=== PATIENT | male | born 1950 | race Caucasian/White ===

== ENCOUNTER → 2017-10-30 | Outpatient (CLI) | payer MEDICARE, OTHER ==
[~2017-10-30] MED LIST: AMLO10 PO; ASPI325 PO; ASPI325EC PO; ASPI81CH PO; ATOR40TA PO; COQ1050 MG PO; GLUC500 PO; IBUP800 PO; OXYACE5T PO; Percocet 5-3251 EACH PO
== END | disposition home or self-care (01) ==
LOC: LAB SHORT 11:17 → PLD 11:17
DX: Q82.8 Other specified congenital malformations of skin (principal)
CPT/HCPCS: 88305; 88342

== ENCOUNTER → 2017-11-20 | Outpatient (CLI) | payer MEDICARE, OTHER | END | disposition home or self-care (01) | LOC: PLD 13:41 → LAB SHORT 13:41 | DX: D22.5 Melanocytic nevi of trunk (principal) | CPT/HCPCS: 88305 ==

== ENCOUNTER 2018-02-14 13:16 | Inpatient (IN) | payer MEDICARE, OTHER ==
[~2018-02-14] VITALS: Ht 167.6 cm; Wt 78.0 kg
[~2018-02-14 13:16] MED LIST changes: -ASPI325EC PO
[2018-02-20 04:27] LABS: BASOPHILS ABSOLUTE AUTO 0.06 K/mm3 (0.00-0.23); BASOPHILS PERCENT AUTO 1 % (0-2); EOSINOPHILS ABSOLUTE AUTO 0.21 K/mm3 (0.00-0.68); EOSINOPHILS PERCENT AUTO 2 % (0-6); Hematocrit 35.4 % (37.0-53.0); Hemoglobin 12.3 g/dL (13.5-17.5); IMMATURE GRAN ABSOLUTE AUTO 0.05 K/mm3 (0.00-0.10); IMMATURE GRAN PERCENT AUTO 0 % (0-1); LYMPHOCYTES ABSOLUTE AUTO 1.58 K/mm3 (0.84-5.20); LYMPHOCYTES PERCENT AUTO 13 % (21-46); MONOCYTES ABSOLUTE AUTO 1.16 K/mm3 (0.16-1.47); MONOCYTES PERCENT AUTO 10 % (4-13); Mean Corpuscular HGB Conc 34.7 g/dL (31.5-36.5); Mean Corpuscular Volume 86 fL (80-100); Mean Platelet Volume 9.3 fL (9.1-12.4); NEUTROPHILS ABSOLUTE AUTO 9.12 K/mm3 (1.96-9.15); NEUTROPHILS PERCENT AUTO 75 % (41-73); Platelet Count 310 K/mm3 (150-400); RDW Coefficient Variation 11.8 % (11.7-14.2); RDW Standard Deviation 37.1 fL (35.1-46.3); White Blood Cell Count 12.18 K/mm3 (4.00-11.30)
[2018-02-20 04:43] LABS: Anion Gap 9 mmol/L (6-16); Blood Urea Nitrogen 15 mg/dL (8-24); Bun/Creatinine Ratio 15.6 (12.0-20.0); CO2, Blood 27 mmol/L (21-32); Calcium, Blood 8.5 mg/dL (8.5-10.1); Chloride, Blood 94 mmol/L (98-108); Creatinine, Blood 0.96 mg/dL (0.60-1.20); Glomerular Filtration Rate >60 (60-); Glucose, Blood 93 mg/dL (70-99); Potassium, Blood 3.6 mmol/L (3.5-5.5); Sodium, Blood 130 mmol/L (136-145)
[2018-02-20] MEDS ORDERED: Percocet 5-3251 EACH PO (09:54)
[2018-02-20] MEDS ORDERED: ASPI325EC PO (09:54)
== END 2018-02-20 10:38 | disposition home or self-care (01) | DRG 470 ==
LOC: SURS 02-19 05:57 → PRE IP 02-19 07:30 → SURS 02-19 11:14
PROVIDERS: Orthopaedic Surgery
PROC: 0SRB039 Replacement of Left Hip Joint with Ceramic Synthetic Substitute, Cemented, Open Approach (ICD-10-PCS; principal; 2018-02-19 07:30)
DX: M16.12 Unilateral primary osteoarthritis, left hip (principal); M10.9 Gout, unspecified; I10 Essential (primary) hypertension; E78.5 Hyperlipidemia, unspecified
CPT/HCPCS: 36415; 72170; 80048; 85025; 88300; 97110; 97116; 97161; 97530; C1776; G8978; G8979; J0171; J0735; J1885; J2250; J2765; J2795; J3010; J7120

== ENCOUNTER → 2018-03-07 | Outpatient (CLI) | payer MEDICARE, OTHER, SELFPAY ==
[~2018-03-07] MED LIST changes: +ASPI325EC PO
== END ==
LOC: PLD 07:06 → LAB SHORT 07:06
DX: Z85.820 Personal history of malignant melanoma of skin (principal); L57.0 Actinic keratosis
CPT/HCPCS: 88305

== ENCOUNTER → 2018-05-06 | Outpatient (CLI) | payer MEDICARE, OTHER, SELFPAY | END | disposition home or self-care (01) | LOC: PLD 12:28 → LAB SHORT 12:28 | DX: D04.5 Carcinoma in situ of skin of trunk (principal); L57.0 Actinic keratosis | CPT/HCPCS: 88305 ==

== ENCOUNTER → 2019-08-05 | Outpatient (CLI) | payer MEDICARE, OTHER | END | disposition home or self-care (01) | LOC: LAB SHORT 14:46 → PLD 14:46 | DX: C44.42 Squamous cell carcinoma of skin of scalp and neck (principal) | CPT/HCPCS: 88305 ==

== ENCOUNTER → 2020-09-20 | Outpatient (CLI) | payer MEDICARE, OTHER | END | disposition home or self-care (01) | LOC: LAB 13:08 → LAB SHORT 13:08 | DX: C44.519 Basal cell carcinoma of skin of other part of trunk (principal) | CPT/HCPCS: 88305 ==

== ENCOUNTER → 2021-03-21 | Outpatient (CLI) | payer MEDICARE, OTHER | LOC: LAB SHORT 14:46 → LAB 14:46 | DX: D48.5 Neoplasm of uncertain behavior of skin (principal); Z88.0 Allergy status to penicillin | CPT/HCPCS: 88305 ==

== ENCOUNTER → 2021-10-03 | Outpatient (CLI) | payer MEDICARE, OTHER | END | disposition home or self-care (01) | LOC: LAB SHORT 08:28 | DX: D03.39 Melanoma in situ of other parts of face (principal); D22.4 Melanocytic nevi of scalp and neck | CPT/HCPCS: 88305 ==

== ENCOUNTER → 2021-11-10 | Outpatient (CLI) | payer MEDICARE, OTHER | END | disposition home or self-care (01) | LOC: PLD 14:46 → LAB SHORT 14:46 | DX: L73.8 Other specified follicular disorders (principal); L57.0 Actinic keratosis | CPT/HCPCS: 88305 ==

== ENCOUNTER → 2023-02-28 | Outpatient (CLI) | payer MEDICARE, OTHER | LOC: PLD 16:04 → LAB SHORT 16:04 | DX: D48.5 Neoplasm of uncertain behavior of skin (principal) | CPT/HCPCS: 88305 ==

== ENCOUNTER → 2023-06-06 | Outpatient (CLI) | payer MEDICARE, OTHER | LOC: LAB SHORT 15:01 → PLD 15:01 | DX: L82.1 Other seborrheic keratosis (principal) | CPT/HCPCS: 88305 ==

== ENCOUNTER 2023-08-16 14:15 | Emergency (ER) | payer MEDICARE, OTHER ==
[~2023-08-16] VITALS: Ht 172.7 cm; Wt 80.3 kg
[2023-08-16 15:11] LABS: BASOPHILS ABSOLUTE AUTO 0.08 K/mm3 (0.00-0.23); BASOPHILS PERCENT AUTO 1 % (0-2); EOSINOPHILS ABSOLUTE AUTO 0.13 K/mm3 (0.00-0.68); EOSINOPHILS PERCENT AUTO 1 % (0-6); Hematocrit 36.1 % (37.0-53.0); Hemoglobin 12.9 g/dL (13.5-17.5); IMMATURE GRAN ABSOLUTE AUTO 0.04 K/mm3 (0.00-0.10); IMMATURE GRAN PERCENT AUTO 0 % (0-1); LYMPHOCYTES ABSOLUTE AUTO 1.11 K/mm3 (0.84-5.20); LYMPHOCYTES PERCENT AUTO 12 % (21-46); MONOCYTES ABSOLUTE AUTO 0.78 K/mm3 (0.16-1.47); MONOCYTES PERCENT AUTO 8 % (4-13); Mean Corpuscular HGB 30.2 pg (26.0-34.0); Mean Corpuscular HGB Conc 35.7 g/dL (31.5-36.5); Mean Corpuscular Volume 85 fL (80-100); Mean Platelet Volume 9.3 fL (9.1-12.4); NEUTROPHILS ABSOLUTE AUTO 7.13 K/mm3 (1.96-9.15); NEUTROPHILS PERCENT AUTO 77 % (41-73); Platelet Count 284 K/mm3 (150-400); RDW Coefficient Variation 12.9 % (11.7-14.2); RDW Standard Deviation 39.4 fL (35.1-46.3); Red Blood Cell Count 4.27 M/mm3 (4.30-5.90); White Blood Cell Count 9.27 K/mm3 (4.00-11.30)
[2023-08-16 15:34] LABS: Albumin/Globulin Ratio 0.9 (0.8-1.8); Bilirubin, Total 0.3 mg/dL (0.1-1.0); Bun/Creatinine Ratio 18.3 (12.0-20.0); Calcium, Blood 9.4 mg/dL (8.5-10.1); Creatinine, Blood 1.64 mg/dL (0.60-1.20); Globulin, Blood 4.4 g/dL (2.2-4.0); Magnesium, Blood 2.1 mg/dL (1.6-2.4); Potassium, Blood 3.9 mmol/L (3.5-5.5); Total Protein, Blood 8.4 g/dL (6.4-8.2)
[2023-08-16 20:30] VITALS: BP 178/99
== END 2023-08-16 20:33 | disposition home or self-care (01) ==
LOC: ER 14:15
PROVIDERS: Physician Assistant
DX: R55 Syncope and collapse (principal); I12.9 Hypertensive chronic kidney disease with stage 1 through stage 4 chronic kidney disease, or unspecified chronic kidney disease; N18.9 Chronic kidney disease, unspecified; E78.5 Hyperlipidemia, unspecified; M19.90 Unspecified osteoarthritis, unspecified site; Z88.0 Allergy status to penicillin; Z79.899 Other long term (current) drug therapy
CPT/HCPCS: 80053; 83735; 85025; 93005; 93010; 99284-25

== ENCOUNTER → 2023-10-18 | Outpatient (CLI) | payer MEDICARE, OTHER ==
[2023-10-18 17:02] LABS: Creatinine, Urine Random 60.5 mg/dL (27.00-270.00); Protein, Urine Random 64.2 mg/dL (0.0-11.9); Protein/Creat Ratio, Ur Random 1.1
== END ==
LOC: LAB SHORT 12:30 → LAB 12:30
PROVIDERS: Hospitalist
DX: N18.32 Chronic kidney disease, stage 3b (principal)
CPT/HCPCS: 82570; 84156

== ENCOUNTER → 2024-08-04 | Outpatient (CLI) | payer OTHER ==
[~2024-08-04] MED LIST changes: +LIDO700A20 TOP; +MECL12.5 PO; +OLMESARTAN MEDO20 MG PO; +TRAM50 PO
[2024-08-04 13:15] LABS: BASOPHILS ABSOLUTE AUTO 0.04 K/mm3 (0.00-0.23); BASOPHILS PERCENT AUTO 1 % (0-2); EOSINOPHILS ABSOLUTE AUTO 0.03 K/mm3 (0.00-0.68); EOSINOPHILS PERCENT AUTO 0 % (0-6); Hemoglobin 10.8 g/dL (13.5-17.5); IMMATURE GRAN ABSOLUTE AUTO 0.04 K/mm3 (0.00-0.10); IMMATURE GRAN PERCENT AUTO 1 % (0-1); LYMPHOCYTES ABSOLUTE AUTO 0.95 K/mm3 (0.84-5.20); LYMPHOCYTES PERCENT AUTO 12 % (21-46); MONOCYTES ABSOLUTE AUTO 0.53 K/mm3 (0.16-1.47); MONOCYTES PERCENT AUTO 7 % (4-13); Mean Corpuscular HGB 29.2 pg (26.0-34.0); Mean Corpuscular HGB Conc 33.8 g/dL (31.5-36.5); Mean Corpuscular Volume 87 fL (80-100); NEUTROPHILS PERCENT AUTO 79 % (41-73); Platelet Count 269 K/mm3 (150-400); RDW Coefficient Variation 13.2 % (11.7-14.2); RDW Standard Deviation 41.4 fL (35.1-46.3); White Blood Cell Count 7.69 K/mm3 (4.00-11.30)
[2024-08-04 13:25] LABS: Bilirubin, Total 0.5 mg/dL (0.1-1.0); Bun/Creatinine Ratio 18.2 (12.0-20.0); Calcium, Blood 9.3 mg/dL (8.5-10.1); Creatinine, Blood 2.03 mg/dL (0.60-1.20); Globulin, Blood 4.2 g/dL (2.2-4.0); Potassium, Blood 5.3 mmol/L (3.5-5.5); Total Protein, Blood 8.2 g/dL (6.4-8.2)
== END | disposition home or self-care (01) ==
LOC: LAB 13:10 → LAB SHORT 13:10
PROVIDERS: Physician Assistant
DX: R42 Dizziness and giddiness (principal)
CPT/HCPCS: 80053; 85025

== ENCOUNTER 2025-04-07 20:39 | Inpatient (IN) | payer OTHER ==
[~2025-04-07] VITALS: Ht 170.2 cm; Wt 79.4 kg
[2025-04-07 21:09] LABS: BASOPHILS ABSOLUTE AUTO 0.05 K/mm3 (0.00-0.23); BASOPHILS PERCENT AUTO 0 % (0-2); EOSINOPHILS ABSOLUTE AUTO 0.11 K/mm3 (0.00-0.68); EOSINOPHILS PERCENT AUTO 1 % (0-6); Hematocrit 29.6 % (37.0-53.0); Hemoglobin 10.2 g/dL (13.5-17.5); IMMATURE GRAN ABSOLUTE AUTO 0.22 K/mm3 (0.00-0.10); IMMATURE GRAN PERCENT AUTO 2 % (0-1); LYMPHOCYTES ABSOLUTE AUTO 2.08 K/mm3 (0.84-5.20); LYMPHOCYTES PERCENT AUTO 17 % (21-46); MONOCYTES ABSOLUTE AUTO 1.10 K/mm3 (0.16-1.47); MONOCYTES PERCENT AUTO 9 % (4-13); Mean Corpuscular HGB Conc 34.5 g/dL (31.5-36.5); Mean Corpuscular Volume 84 fL (80-100); NEUTROPHILS ABSOLUTE AUTO 8.50 K/mm3 (1.96-9.15); NEUTROPHILS PERCENT AUTO 71 % (41-73); NRBC ABSOLUTE 0.00 K/mm3 (0.00-0.02); NRBC Auto 0.0 /100 WBC (0.0-0.2); Platelet Count 347 K/mm3 (150-400); RDW Coefficient Variation 12.4 % (11.7-14.2); RDW Standard Deviation 37.9 fL (35.1-46.3)
[2025-04-07 21:55] LABS: Anion Gap 14.0 mmol/L (3-11); Blood Urea Nitrogen 56.0 mg/dL (8-24); CO2, Blood 18.0 mmol/L (21-32); Calcium, Blood 8.3 mg/dL (8.5-10.1); Chloride, Blood 92.0 mmol/L (98-108); Creatinine, Blood 2.25 mg/dL (0.60-1.20); Glucose, Blood 109.0 mg/dL (70-99); Potassium, Blood 4.3 mmol/L (3.5-5.5); Sodium, Blood 120.0 mmol/L (136-145)
[2025-04-07 22:00] LABS: Osmolality, Serum 270.0 mos/KG (275-300)
[2025-04-07] MEDS ORDERED: Polyethylene Glycol 3350 17 gm PO PRN (23:10)
[2025-04-08 01:30] LABS: Anion Gap 12.0 mmol/L (3-11); Blood Urea Nitrogen 49.0 mg/dL (8-24); CO2, Blood 20.0 mmol/L (21-32); Calcium, Blood 8.5 mg/dL (8.5-10.1); Chloride, Blood 93.0 mmol/L (98-108); Creatinine, Blood 2.2 mg/dL (0.60-1.20); Glucose, Blood 96.0 mg/dL (70-99); Potassium, Blood 4.3 mmol/L (3.5-5.5); Sodium, Blood 121.0 mmol/L (136-145)
[2025-04-08 01:41] VITALS: BP 154/83
[2025-04-08 04:22] VITALS: BP 114/67
[2025-04-08 04:52] LABS: Hematocrit 27.5 % (37.0-53.0); Hemoglobin 9.5 g/dL (13.5-17.5); Mean Corpuscular HGB Conc 34.5 g/dL (31.5-36.5); Mean Corpuscular Volume 85 fL (80-100); NRBC ABSOLUTE 0.00 K/mm3 (0.00-0.02); NRBC Auto 0.0 /100 WBC (0.0-0.2); Platelet Count 351 K/mm3 (150-400); RDW Coefficient Variation 12.3 % (11.7-14.2); RDW Standard Deviation 38.4 fL (35.1-46.3)
[2025-04-08 05:14] LABS: Alanine Aminotransfer (ALT/SGP 25.0 U/L (12-78); Albumin, Blood 2.8 g/dL (3.4-5.0); Albumin/Globulin Ratio 0.8 (0.8-1.8); Anion Gap 10.0 mmol/L (3-11); Aspartate Aminotrans (AST/SGOT 19.0 U/L (12-37); Bilirubin, Total 0.2 mg/dL (0.1-1.0); Blood Urea Nitrogen 51.0 mg/dL (8-24); CO2, Blood 20.0 mmol/L (21-32); Calcium, Blood 8.2 mg/dL (8.5-10.1); Chloride, Blood 96.0 mmol/L (98-108); Creatinine, Blood 2.19 mg/dL (0.60-1.20); Globulin, Blood 3.5 g/dL (2.2-4.0); Glucose, Blood 98.0 mg/dL (70-99); Potassium, Blood 4.4 mmol/L (3.5-5.5); Sodium, Blood 122.0 mmol/L (136-145); Total Protein, Blood 6.3 g/dL (6.4-8.2)
--- NOTE | 2025-04-08 05:18 | NUR ---
SHIFT SUMMARY 75 YR M ADMITTED TO MEDICAL FLOOR @ 0040 THIS A.M. FOR HYPONATERMIA. SODIUM WAS 121 UPON ARRIVAL AND 122 @ 0500 LABS. PT WAS NAUSEOUS UPON ARRIVAL BUT IT HAS SINCE RESOLVED. PT HR HAS BEEN CONSISTENTLY ESTELA AND AT APPROX 0220 [employer] REPORTED THAT HR WENT DOWN TO 29 FOR ONE SECOND AND THE BACK UP TO 30'S AND 40'S. CALL WAS MADE TO DR. LEWIS AND HE WAS MADE AWARE OF THE SITUATION, ADVISED TO WATCH HR AND IF IT WENT BACK DOWN TO 20-30 FOR 20 SECONDS OR MORE THEN PT MAY NEED TO BE TRANSFERED TO PCU FOR CLOSER CARDIAC MONITORING. AMLODIPINE WAS DC'D. PT IS ASYMPTOMATIC AND HR HAS NOT DROPPED BACK DOWN THAT LOW. PT IS A&O X 4 AND ABLE TO MAKE HIS NEEDS KNOWN, HE IS CURRENTLY RUNNING NS @ 100. BED IN LOW POSITION AND CALL LIGHT IN REACH. IS A&O X 4 AND SBA TO BATHROOM DUE TO IV TUBING. ABLE TO MAKE NEEDS KNOWN.
[2025-04-08 07:32] VITALS: BP 135/70
[2025-04-08 08:50] LABS: Anti-Xa UFH, PHA Monitoring <0.10 IU/mL; Prothrombin Time Results 10.6 Sec (9.7-11.5)
[2025-04-08] MEDS ORDERED: Heparin Sodium,Porcine 5,000 UNIT/0.5 ML SDV SC SCH (09:00)
[2025-04-08] MEDS ORDERED: Heparin Sodium,Porcine/0.5 NS 500 ML IV SCH (09:05)
[2025-04-08] MEDS ORDERED: Heparin Sodium 5000 Units/ML 1ML MDV IV ONE (09:05)
[2025-04-08 13:57] LABS: Source, Urine Clean Catch
[2025-04-08 14:08] LABS: Osmolality, Urine 255 mos/kg (15-1400)
[2025-04-08 14:09] LABS: Bilirubin, Urine Neg (Neg); Glucose Qualitative, Urine Neg (Neg); Ketones, Urine Neg (Neg); Leukocyte Esterase, Urine Neg (Neg); Protein, Urine 1+ (Neg); Specific Gravity, Urine 1.010 (1.003-1.022); Urobilinogen, Urine NORM (Normal)
[2025-04-08 14:21] LABS: Color, Urine Pale Yellow (P-Yellow); Sodium, Urine, Random 16 mmol/L (20-110)
--- NOTE | 2025-04-08 14:31 | NUR ---
END OF SHIFT NOTE 1431 PT ALERT, ORIENTED, ABLE TO MAKE NEEDS KNOWN. PT UP INDEPENDENTLY. PT ON TELE WITH EPISODES OF PAUSES, LONGEST ONE 3.71 SECONDS. HR VARIES 34-50. PT WAS STARTED ON A HEPARIN GTT. PLAN WAS TO GET A PACEMAKER AND TRANSFER TO ANOTHER HOSPITAL, BUT UPDATED PLAN IS TO HAVE A HEART MONITOR PLACED AT DISCHARGE AND FOLLOW UP WITH CARDIOLOGY OUTPATIENT. PT MUCH HAPPIER WITH THIS PLAN. PT HAS A PLASTIC LENSE IN HIS RIGHT EYE THAT HE HAS USED NORMAL SALINE TO KEEP MOIST NEEDED. HE DENIES NAUSEA, HEADACHE, FATIGUE, OR DIZZINESS DURING THE DAY.
[2025-04-08] MEDS ORDERED: TAMSULOSIN HCL0.4 M1 PO (15:25)
[2025-04-08] MEDS ORDERED: AMLODIPINE BESYL5 MG PO (15:25)
[2025-04-08 16:54] VITALS: BP 129/67
[2025-04-08] MEDS ORDERED: NS 1,000 ML IV SCH ×2 (17:00)
[2025-04-08 19:57] VITALS: BP 131/75
[2025-04-09] VITALS (8 sets, daily range): BP systolic 118–156; BP diastolic 63–83
[2025-04-09] MEDS ORDERED: Clarify Drug Order XX ONE ×2 (00:40→05:35)
--- NOTE | 2025-04-09 01:14 | NUR ---
NOTIFIED HOSPITALIST ABOUT TELE EVENTS FOR PT. PT HAS HAD FOUR PAUSES, 3.0SEC @ 2200, 3.7SEC @ 2316, 4.2SEC @ 0106, AND 4.0SEC AT 0109. PT HAS BEEN ASYMPTOMATIC AND VSS. WILL CONTINUE TO MONITOR.
--- NOTE | 2025-04-09 02:24 | NUR ---
HOSPITALIST MADE AWARE OF ANOTHER 4 SEC PAUSE, PT HAS REMAINED ASYMPTOMATIC.
[2025-04-09 04:58] LABS: BASOPHILS ABSOLUTE AUTO 0.06 K/mm3 (0.00-0.23); BASOPHILS PERCENT AUTO 1 % (0-2); EOSINOPHILS ABSOLUTE AUTO 0.22 K/mm3 (0.00-0.68); EOSINOPHILS PERCENT AUTO 2 % (0-6); Hematocrit 25.0 % (37.0-53.0); Hemoglobin 8.6 g/dL (13.5-17.5); IMMATURE GRAN ABSOLUTE AUTO 0.16 K/mm3 (0.00-0.10); IMMATURE GRAN PERCENT AUTO 1 % (0-1); LYMPHOCYTES ABSOLUTE AUTO 2.55 K/mm3 (0.84-5.20); LYMPHOCYTES PERCENT AUTO 22 % (21-46); MONOCYTES ABSOLUTE AUTO 1.22 K/mm3 (0.16-1.47); MONOCYTES PERCENT AUTO 10 % (4-13); Mean Corpuscular HGB Conc 34.4 g/dL (31.5-36.5); Mean Corpuscular Volume 86 fL (80-100); NEUTROPHILS ABSOLUTE AUTO 7.51 K/mm3 (1.96-9.15); NEUTROPHILS PERCENT AUTO 64 % (41-73); NRBC ABSOLUTE 0.00 K/mm3 (0.00-0.02); NRBC Auto 0.0 /100 WBC (0.0-0.2); Platelet Count 294 K/mm3 (150-400); RDW Coefficient Variation 12.7 % (11.7-14.2); RDW Standard Deviation 39.8 fL (35.1-46.3)
--- NOTE | 2025-04-09 05:15 | NUR ---
SHIFT SUMMARY PT HERE FOR LOW NA. HE HAS BEEN RESTING IN BED COMFORTABLY OVERNIGHT. HE HAS BEEN AOX4, CALM AND COOPERATIVE. HE HAS CALLED APPROPRIATELY OVERNIGHT. PT HAS TELE ON. HE HAS BEEN AFLUTTER IN HIGH 20S-50S OVERNIGHT, WITH SEVERAL 3-4 SECOND PAUSES THROUGHOUT NIGHT. HE HAS BEEN ASYMPTOMATIC W/ VSS OVERNIGHT. MADE AWARE OF THESE EVENTS (SEE NOTES). PT HAS BEEN INDEPENDENT IN . HE HAS HAD NO COMPLAINTS OVERNIGHT. NO ACUTE EVENTS OVERNIGHT.
[2025-04-09 05:22] LABS: Anion Gap 8.0 mmol/L (3-11); Blood Urea Nitrogen 44.0 mg/dL (8-24); CO2, Blood 19.0 mmol/L (21-32); Calcium, Blood 7.5 mg/dL (8.5-10.1); Chloride, Blood 100.0 mmol/L (98-108); Creatinine, Blood 2.05 mg/dL (0.60-1.20); Glucose, Blood 103.0 mg/dL (70-99); Potassium, Blood 4.3 mmol/L (3.5-5.5); Sodium, Blood 123.0 mmol/L (136-145)
--- NOTE | 2025-04-09 17:27 | NUR ---
SHIFT SUMMARY PATIENT A/OX4, ABLE TO MAKE NEEDS KNOWN. PLEASANT AND COOPERATIVE WITH CARE. IV FLUIDS RUNNING PER NOV. HEPARIN HTT DISCONTINUED THIS MORNING AND PATIENT STARTED ON ELIQUIS. TELEMETRY IN PLACE, ATRIAL FLUTTER WITH RATE IN 50s. URINE SPECIMEN OBTAINED THIS MORNING. TRENDING SODIUM LEVELS, STILL BELOW NORMAL LIMITS. PLAN TO DISCHARGE TOMORROW PENDING SODIUM WITH ZIOPATCH PLACEMENT. NO OTHER CONCERNS AT THIS TIME, WILL CONTINUE TO MONITOR.
--- NOTE | 2025-04-10 02:03 | NUR ---
BLADE ALIGNER NOTIFIED THIS RN OF A 4.16 SEC PAUSE. THIS RN NOTIFIED THE PROVIDER WAITER/WAITRESS SECOND CLASS. PT DENIES CHEST PAIN, CHEST PRESSURE, OR HEADACHE. NO FURTHER ORDERS AT THIS TIME.
[2025-04-10 02:47] VITALS: BP 129/78
[2025-04-10 02:48] VITALS: BP 129/78
--- NOTE | 2025-04-10 04:59 | NUR ---
NIGHT SUMMARY: PT AOX4, IND IN ROOM, USING CALL LIGHT APPROPRIATELY. HAD A PAUSE OVERNIGHT ON TELEMETRY, ASYMPTOMATIC, PROVIDER NOTIFIED. VOIDING APPROPRIATELY. FLUIDS RUNNING. CALL LIGHT WITHIN REACH.
[2025-04-10 05:07] LABS: BASOPHILS ABSOLUTE AUTO 0.04 K/mm3 (0.00-0.23); BASOPHILS PERCENT AUTO 0 % (0-2); EOSINOPHILS ABSOLUTE AUTO 0.11 K/mm3 (0.00-0.68); EOSINOPHILS PERCENT AUTO 1 % (0-6); Hematocrit 26.3 % (37.0-53.0); Hemoglobin 8.8 g/dL (13.5-17.5); IMMATURE GRAN ABSOLUTE AUTO 0.19 K/mm3 (0.00-0.10); IMMATURE GRAN PERCENT AUTO 2 % (0-1); LYMPHOCYTES ABSOLUTE AUTO 1.39 K/mm3 (0.84-5.20); LYMPHOCYTES PERCENT AUTO 11 % (21-46); MONOCYTES ABSOLUTE AUTO 1.50 K/mm3 (0.16-1.47); MONOCYTES PERCENT AUTO 12 % (4-13); Mean Corpuscular HGB Conc 33.5 g/dL (31.5-36.5); Mean Corpuscular Volume 87 fL (80-100); NEUTROPHILS ABSOLUTE AUTO 9.24 K/mm3 (1.96-9.15); NEUTROPHILS PERCENT AUTO 74 % (41-73); NRBC ABSOLUTE 0.00 K/mm3 (0.00-0.02); NRBC Auto 0.0 /100 WBC (0.0-0.2); Platelet Count 298 K/mm3 (150-400); RDW Coefficient Variation 13.0 % (11.7-14.2); RDW Standard Deviation 41.3 fL (35.1-46.3)
[2025-04-10 05:30] LABS: Anion Gap 10.0 mmol/L (3-11); Blood Urea Nitrogen 34.0 mg/dL (8-24); CO2, Blood 18.0 mmol/L (21-32); Calcium, Blood 7.8 mg/dL (8.5-10.1); Chloride, Blood 106.0 mmol/L (98-108); Creatinine, Blood 1.94 mg/dL (0.60-1.20); Glucose, Blood 98.0 mg/dL (70-99); Potassium, Blood 4.5 mmol/L (3.5-5.5); Sodium, Blood 129.0 mmol/L (136-145)
[2025-04-10 06:52] VITALS: BP 173/93
[2025-04-10 07:37] VITALS: BP 163/92
[2025-04-10 11:35] VITALS: BP 161/89
[2025-04-10 16:15] VITALS: BP 168/90
[2025-04-10] MEDS ORDERED: ELIQUIS5 M2 PO (16:30)
--- NOTE | 2025-04-10 16:42 | NUR ---
DISCHARGE SUMMARY PT DISCHARGED HOME WITH ZIO PATCH. ZIO PATCH BOX SENT WITH PT - ZIOPATCH INSTRUCTIONS REVIEWED WITH PT BY HEART CENTER RN. BOTH PIV REMOVED - SITES APPEAR WNL. NEW RX FAXED TO [facility] PER PT REQUEST. DISCHARGE INSTRUCTIONS AND NEW RX REVIEWED WITH PT. INSTRUCTED PT TO CONTACT Sunday TO SCHEDULE APPOINTMENT IF NO CALL PRIOR DUE TO STEEL FINISHER UNABLE TO MAKE APPOINTMENT PRIOR TO DISCHARGE. TELE REMOVED AND CLEANED - SENT BACK TO PCU. PT AMBULATED INDEPENDENTLY WITH WELDER BOILERMAKER TO WAIT FOR SPOUSE OUTSIDE PER PT REQUEST.
== END 2025-04-10 16:41 | disposition home or self-care (01) | DRG 641 ==
LOC: ER 20:39 → MEDS 20:40
PROVIDERS: Emergency Medicine; Internal Medicine; Registered Nurse; ADMIT Student in an Organized Health Care Education/Training Program
DX: E87.1 Hypo-osmolality and hyponatremia (principal); I48.20 Chronic atrial fibrillation, unspecified; I48.92 Unspecified atrial flutter; M19.90 Unspecified osteoarthritis, unspecified site; E78.5 Hyperlipidemia, unspecified; Z96.652 Presence of left artificial knee joint; Z96.642 Presence of left artificial hip joint; F10.10 Alcohol abuse, uncomplicated; I12.9 Hypertensive chronic kidney disease with stage 1 through stage 4 chronic kidney disease, or unspecified chronic kidney disease; R00.1 Bradycardia, unspecified; R11.2 Nausea with vomiting, unspecified; N18.32 Chronic kidney disease, stage 3b; Z88.0 Allergy status to penicillin; Z98.890 Other specified postprocedural states; Z79.899 Other long term (current) drug therapy; Z87.74 Personal history of (corrected) congenital malformations of heart and circulatory system; Z71.41 Alcohol abuse counseling and surveillance of alcoholic
CPT/HCPCS: 36415; 80048; 80053; 80069; 82570; 83930; 83935; 83970; 84156; 84295; 84300; 85025; 85027; 85520; 85610; 85730; 93005; 93010; 93246; 93306; 96365; 96366; 96376; 99285-25; A9270; G0378; J1644; J7030

== ENCOUNTER 2025-04-28 18:12 | Inpatient (IN) | payer OTHER ==
[~2025-04-28] VITALS: Ht 172.7 cm; Wt 73.9 kg
[~2025-04-28 18:12] MED LIST changes: +AMLODIPINE BESYL5 MG PO; +ELIQUIS5 M2 PO; +TAMSULOSIN HCL0.4 M1 PO
[2025-04-28] MEDS ORDERED: Ondansetron 4 MG SoluTab SL ONE (18:30)
[2025-04-28 18:51] LABS: BASOPHILS ABSOLUTE AUTO 0.05 K/mm3 (0.00-0.23); BASOPHILS PERCENT AUTO 1 % (0-2); EOSINOPHILS ABSOLUTE AUTO 0.22 K/mm3 (0.00-0.68); EOSINOPHILS PERCENT AUTO 3 % (0-6); Hematocrit 28.2 % (37.0-53.0); Hemoglobin 9.5 g/dL (13.5-17.5); IMMATURE GRAN ABSOLUTE AUTO 0.02 K/mm3 (0.00-0.10); IMMATURE GRAN PERCENT AUTO 0 % (0-1); LYMPHOCYTES ABSOLUTE AUTO 1.19 K/mm3 (0.84-5.20); LYMPHOCYTES PERCENT AUTO 16 % (21-46); MONOCYTES ABSOLUTE AUTO 0.67 K/mm3 (0.16-1.47); MONOCYTES PERCENT AUTO 9 % (4-13); Mean Corpuscular HGB Conc 33.7 g/dL (31.5-36.5); Mean Corpuscular Volume 84 fL (80-100); NEUTROPHILS ABSOLUTE AUTO 5.37 K/mm3 (1.96-9.15); NEUTROPHILS PERCENT AUTO 71 % (41-73); NRBC ABSOLUTE 0.00 K/mm3 (0.00-0.02); NRBC Auto 0.0 /100 WBC (0.0-0.2); Platelet Count 278 K/mm3 (150-400); RDW Coefficient Variation 12.7 % (11.7-14.2); RDW Standard Deviation 38.6 fL (35.1-46.3)
[2025-04-28 19:28] LABS: Alanine Aminotransfer (ALT/SGP 30 U/L (12-78); Albumin, Blood 3.7 g/dL (3.4-5.0); Albumin/Globulin Ratio 0.9 (0.8-1.8); Anion Gap 11 mmol/L (3-11); Aspartate Aminotrans (AST/SGOT 22 U/L (12-37); Bilirubin, Total 0.3 mg/dL (0.1-1.0); Blood Urea Nitrogen 52 mg/dL (8-24); CO2, Blood 19 mmol/L (21-32); Calcium, Blood 8.9 mg/dL (8.5-10.1); Chloride, Blood 100 mmol/L (98-108); Creatinine, Blood 3.45 mg/dL (0.60-1.20); Globulin, Blood 4.0 g/dL (2.2-4.0); Glucose, Blood 124 mg/dL (70-99); Potassium, Blood 4.8 mmol/L (3.5-5.5); Sodium, Blood 125 mmol/L (136-145); Total Protein, Blood 7.7 g/dL (6.4-8.2)
[2025-04-28 19:31] LABS: Ethanol (Alcohol), Blood, Med <3 mg/dL
[2025-04-28 19:51] LABS: Osmolality, Serum 285 mos/KG (275-300)
[2025-04-28] MEDS ORDERED: NS 1,000 ML IV SCH (20:40)
[2025-04-28 20:53] LABS: Source, Urine Clean Catch
[2025-04-28] MEDS ORDERED: SULFAMETHOXAZO1 EAC1 PO (20:55)
[2025-04-28 21:07] LABS: Bilirubin, Urine Neg (Neg); Color, Urine Yellow (P-Yellow); Glucose Qualitative, Urine Neg (Neg); Ketones, Urine Neg (Neg); Leukocyte Esterase, Urine Neg (Neg); Protein, Urine 1+ (Neg); Specific Gravity, Urine 1.015 (1.003-1.022); Urobilinogen, Urine NORM (Normal)
[2025-04-28 21:10] LABS: Sodium, Urine, Random 29 mmol/L (20-110)
[2025-04-28 21:14] LABS: Osmolality, Urine 406 mos/kg (15-1400)
[2025-04-28 21:15] LABS: Red Blood Cells, Urine 0-2 /hpf (0-2); White Blood Cells, Urine 0-2 /hpf (0-5)
[2025-04-28 23:47] VITALS: BP 149/84
[2025-04-29] MEDS ORDERED: Darbepoetin (Pharmacy Consult) SC SCH (00:10)
[2025-04-29] MEDS ORDERED: Sodium Bicarb 8.4% Inj 50 MEQ in NS 1,000 ML IV SCH ×2 (01:00→13:00)
[2025-04-29] MEDS ORDERED: Darbepoetin Alfa In Albumn Sol 40 MCG/0.4 ML SC ONE (02:00)
[2025-04-29 03:10] LABS: Albumin, Blood 3.5 g/dL (3.4-5.0); Anion Gap 12 mmol/L (3-11); Blood Urea Nitrogen 45 mg/dL (8-24); CO2, Blood 16 mmol/L (21-32); Calcium, Blood 8.6 mg/dL (8.5-10.1); Chloride, Blood 105 mmol/L (98-108); Creatinine, Blood 3.14 mg/dL (0.60-1.20); Glucose, Blood 100 mg/dL (70-99); Phosphorus, Blood 3.6 mg/dL (2.5-4.9); Potassium, Blood 4.8 mmol/L (3.5-5.5); Sodium, Blood 128 mmol/L (136-145); Thyroid Stimulating Hormone 3.390 uIU/mL (0.360-4.800)
[2025-04-29 03:15] LABS: pH Blood Venous 7.31 (7.34-7.37)
[2025-04-29 03:19] LABS: Osmolality, Serum 284 mos/KG (275-300)
[2025-04-29] MEDS ORDERED: FentaNYL Citrate 50 MCG/ML 2 ML Injection IV PRN (03:45)
[2025-04-29 05:49] VITALS: BP 127/74
--- NOTE | 2025-04-29 06:16 | NUR ---
SUMMARY: PT ARRIVED TO UNIT FROM ED. AOX4, RA, SBA. CURRENTLY ON IV INFUSION OF SODIUM BICARB. 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 PICTURES TAKEN AND PLACED IN CHART. PT CALLS APPROPRIATELY. CALL LIGHT WITHIN REACH AND BED IN LOW POSITION.
[2025-04-29 06:27] LABS: Hematocrit 28.6 % (37.0-53.0); Hemoglobin 9.5 g/dL (13.5-17.5)
[2025-04-29 07:14] LABS: Albumin, Blood 3.3 g/dL (3.4-5.0); Anion Gap 8 mmol/L (3-11); Blood Urea Nitrogen 44 mg/dL (8-24); CO2, Blood 17 mmol/L (21-32); Calcium, Blood 8.7 mg/dL (8.5-10.1); Chloride, Blood 108 mmol/L (98-108); Creatinine, Blood 3.08 mg/dL (0.60-1.20); Glucose, Blood 82 mg/dL (70-99); Magnesium, Blood 2.1 mg/dL (1.6-2.4); Phosphorus, Blood 3.7 mg/dL (2.5-4.9); Potassium, Blood 4.7 mmol/L (3.5-5.5); Sodium, Blood 128 mmol/L (136-145)
[2025-04-29 07:43] VITALS: BP 118/75
[2025-04-29 11:43] LABS: CO2, Blood 21 mmol/L (21-32); Sodium, Blood 132 mmol/L (136-145)
[2025-04-29 16:13] VITALS: BP 123/64
--- NOTE | 2025-04-29 17:20 | NUR ---
PATIENT A/OX4, UP INDEPENDENTLY IN ROOM. VSS, ON RA. NA+ IMPROVING. PAIN TO RLE IMPROVED WITH FENTANYL X1 THIS SHIFT. DR RUBI BEDSIDE AND CHANGED RLE WOUND DRESSING. COMPLIANT WITH 1L FLUID RESTRICTION. NO NEW CONCERNS THIS SHIFT.
--- NOTE | 2025-04-29 19:15 | NUR ---
PHONE CALL FROM DR DIAL: DC FLUIDS. STAT RENAL Fx PANEL. CALL c RESULTS IN ONE HOUR.
--- NOTE | 2025-04-29 19:22 | NUR ---
ASSUMPTION OF CARE: THIS RN ASSUMED CARE OF PATIENT. AWAKE DURING SHIFT CHANGE REPORT. SITTING UP IN BED c HOB ELEVATED. BREATHING EVEN AND UNLABORED c ROOM AIR. FLUIDS STOPPED AND ORDER PLACED FOR STAT RENAL FUNCTION TEST PER T.O. FROM DR. DIAL. BED IN LOWEST POSITION. CALL LIGHT WITHIN REACH. ACUTE NEEDS MET.
[2025-04-29 19:33] VITALS: BP 117/78
[2025-04-29 20:09] LABS: Albumin, Blood 3.0 g/dL (3.4-5.0); Anion Gap 9 mmol/L (3-11); Blood Urea Nitrogen 36 mg/dL (8-24); CO2, Blood 20 mmol/L (21-32); Calcium, Blood 8.1 mg/dL (8.5-10.1); Chloride, Blood 109 mmol/L (98-108); Creatinine, Blood 3.09 mg/dL (0.60-1.20); Glucose, Blood 111 mg/dL (70-99); Phosphorus, Blood 3.0 mg/dL (2.5-4.9); Potassium, Blood 5.0 mmol/L (3.5-5.5); Sodium, Blood 133 mmol/L (136-145)
--- NOTE | 2025-04-29 20:24 | NUR ---
CALL TO DR YOJANA yan RESULTS OF RENAL Fx PANEL: NO NEW ORDERS.
[2025-04-30 04:19] VITALS: BP 107/55
[2025-04-30 04:39] LABS: Hematocrit 27.2 % (37.0-53.0); Hemoglobin 9.2 g/dL (13.5-17.5)
[2025-04-30 04:56] LABS: Albumin, Blood 3.0 g/dL (3.4-5.0); Anion Gap 12 mmol/L (3-11); Blood Urea Nitrogen 36 mg/dL (8-24); CO2, Blood 18 mmol/L (21-32); Calcium, Blood 8.2 mg/dL (8.5-10.1); Chloride, Blood 108 mmol/L (98-108); Creatinine, Blood 2.93 mg/dL (0.60-1.20); Glucose, Blood 93 mg/dL (70-99); Magnesium, Blood 1.9 mg/dL (1.6-2.4); Phosphorus, Blood 3.5 mg/dL (2.5-4.9); Potassium, Blood 5.0 mmol/L (3.5-5.5); Sodium, Blood 133 mmol/L (136-145)
--- NOTE | 2025-04-30 07:10 | NUR ---
END OF SHIFT SUMMARY: A&Ox4. PLEASANT AND COOPERATIVE WITH CARE. CALLS APPROPRIATELY AND IS ABLE TO ADVOCATE NEEDS EFFECTIVELY. CONTINENT OF BOWEL AND BLADDER. AMBULATES INDEPENDENTLY WITHIN ROOM. MEDS WHOLE c FLUIDS. NO C / O PAIN OR DISCOMFORT. SLEPT MAJORITY OF SHIFT. CONTINUES 1L FLUID RESTRICTION. DR DIAL DCd NaHCO3 GTTs AT 1900 FOLLOWED BY RENAL FUNCTION LEVEL. DR DIAL WAS CALLED WITH RESULTS. AM LABS OBTAINED. NOTED TO BE RUNNING LOW-GRADE FEVER IN PROPERTY SPECIALIST. ASYMPTOMATIC AND LOWER ON RECHECK. BED IN LOWEST POSITION, CALL LIGHT WITHIN REACH, ALL NEEDS MET. REPORT TO ONCOMING NURSE.
[2025-04-30 07:19] VITALS: BP 116/77
[2025-04-30] MEDS ORDERED: SODBIC650 PO (13:52)
[2025-04-30] MEDS ORDERED: SODCHL1 PO (13:52)
--- NOTE | 2025-04-30 14:50 | NUR ---
DISCHARGE SUMMARY PT DISCHARGED HOME. FOLLOW UP APPOINTMENTS SCHEDULED WITH DR. DIAL AND PCP. NEW RX FAXED TO [facility] PER PT REQUEST. DISCHARGE INSTRUCTIONS, NEW MEDS, AND APPOINTMENTS REVIEWED WITH PT. IV REMOVED AND SITE APPEARS WNL. PT AMBULATED INDEPENDENTLY TO VEHICLE WITH HIS SPOUSE. PT DENIED WANTING TO BE WHEELED DOWN BY STAFF.
== END 2025-04-30 14:53 | disposition home or self-care (01) | DRG 644 ==
LOC: ER 18:12 → ERHOLD 18:13 → MEDS 18:13
PROVIDERS: Emergency Medicine; Internal Medicine Nephrology; ADMIT Internal Medicine
DX: E22.2 Syndrome of inappropriate secretion of antidiuretic hormone (principal); E87.21 Acute metabolic acidosis; N17.9 Acute kidney failure, unspecified; I48.92 Unspecified atrial flutter; L97.919 Non-pressure chronic ulcer of unspecified part of right lower leg with unspecified severity; N18.4 Chronic kidney disease, stage 4 (severe); E78.5 Hyperlipidemia, unspecified; T36.8X5A Adverse effect of other systemic antibiotics, initial encounter; I12.9 Hypertensive chronic kidney disease with stage 1 through stage 4 chronic kidney disease, or unspecified chronic kidney disease; N40.0 Benign prostatic hyperplasia without lower urinary tract symptoms; M19.90 Unspecified osteoarthritis, unspecified site; E86.9 Volume depletion, unspecified; D63.1 Anemia in chronic kidney disease; I44.0 Atrioventricular block, first degree; F10.10 Alcohol abuse, uncomplicated; E87.5 Hyperkalemia; Z96.652 Presence of left artificial knee joint; Z96.642 Presence of left artificial hip joint; Z79.01 Long term (current) use of anticoagulants; Z85.828 Personal history of other malignant neoplasm of skin; Z88.0 Allergy status to penicillin; Z79.1 Long term (current) use of non-steroidal anti-inflammatories (NSAID); Z87.74 Personal history of (corrected) congenital malformations of heart and circulatory system
CPT/HCPCS: 36415; 51798; 76770; 80053; 80069; 80320; 81001; 82374; 82533; 82550; 82803; 83735; 83930; 83935; 84295; 84300; 84443; 85014; 85018; 85025; 93005; 93010; 96365; 96366; 96372; 96375; 96376; 99285-25; A9270; G0378; J0881; J3010; J7030

== ENCOUNTER 2025-05-05 14:13 | Emergency (ER) | payer OTHER ==
[~2025-05-05] VITALS: Ht 172.7 cm; Wt 73.9 kg
[~2025-05-05 14:13] MED LIST changes: +SODBIC650 PO; +SODCHL1 PO; +SULFAMETHOXAZO1 EAC1 PO
[2025-05-05 15:15] LABS: BASOPHILS ABSOLUTE AUTO 0.08 K/mm3 (0.00-0.23); BASOPHILS PERCENT AUTO 1 % (0-2); EOSINOPHILS ABSOLUTE AUTO 0.21 K/mm3 (0.00-0.68); EOSINOPHILS PERCENT AUTO 2 % (0-6); Hematocrit 28.9 % (37.0-53.0); Hemoglobin 9.6 g/dL (13.5-17.5); IMMATURE GRAN ABSOLUTE AUTO 0.05 K/mm3 (0.00-0.10); IMMATURE GRAN PERCENT AUTO 1 % (0-1); LYMPHOCYTES ABSOLUTE AUTO 1.48 K/mm3 (0.84-5.20); LYMPHOCYTES PERCENT AUTO 16 % (21-46); MONOCYTES ABSOLUTE AUTO 0.94 K/mm3 (0.16-1.47); MONOCYTES PERCENT AUTO 10 % (4-13); Mean Corpuscular HGB Conc 33.2 g/dL (31.5-36.5); Mean Corpuscular Volume 86 fL (80-100); NEUTROPHILS ABSOLUTE AUTO 6.26 K/mm3 (1.96-9.15); NEUTROPHILS PERCENT AUTO 69 % (41-73); NRBC ABSOLUTE 0.00 K/mm3 (0.00-0.02); NRBC Auto 0.0 /100 WBC (0.0-0.2); Platelet Count 291 K/mm3 (150-400); RDW Coefficient Variation 12.8 % (11.7-14.2); RDW Standard Deviation 40.0 fL (35.1-46.3)
[2025-05-05 15:58] LABS: Alanine Aminotransfer (ALT/SGP 22.0 U/L (12-78); Albumin, Blood 3.5 g/dL (3.4-5.0); Albumin/Globulin Ratio 0.8 (0.8-1.8); Anion Gap 9.0 mmol/L (3-11); Aspartate Aminotrans (AST/SGOT 20.0 U/L (12-37); Bilirubin, Total 0.3 mg/dL (0.1-1.0); Blood Urea Nitrogen 40.0 mg/dL (8-24); CO2, Blood 23.0 mmol/L (21-32); Calcium, Blood 9.4 mg/dL (8.5-10.1); Chloride, Blood 106.0 mmol/L (98-108); Creatinine, Blood 2.32 mg/dL (0.60-1.20); Globulin, Blood 4.2 g/dL (2.2-4.0); Glucose, Blood 110.0 mg/dL (70-99); Potassium, Blood 4.2 mmol/L (3.5-5.5); Sodium, Blood 134.0 mmol/L (136-145); Total Protein, Blood 7.7 g/dL (6.4-8.2)
[2025-05-05 16:42] VITALS: BP 175/97
== END 2025-05-05 16:45 | disposition home or self-care (01) ==
LOC: ER 14:13
PROVIDERS: Physician Assistant
DX: I49.9 Cardiac arrhythmia, unspecified (principal); I11.0 Hypertensive heart disease with heart failure; I50.9 Heart failure, unspecified; E78.5 Hyperlipidemia, unspecified; Z95.0 Presence of cardiac pacemaker; Z79.899 Other long term (current) drug therapy; Z88.0 Allergy status to penicillin; Z88.8 Allergy status to other drugs, medicaments and biological substances
CPT/HCPCS: 80053; 85025; 93005; 93010; 99284-25

== ENCOUNTER 2025-05-08 08:57 | Day surgery (SDC) | payer OTHER ==
[~2025-05-08] VITALS: Ht 172.7 cm; Wt 73.9 kg
[2025-05-08 09:21] VITALS: BP 147/95
[2025-05-08] MEDS ORDERED: CLINDAMYCIN IV ONE (09:59)
[2025-05-08] MEDS ORDERED: Midazolam HCl 1MG / ML 2ML Vial ONE (09:59)
[2025-05-08] MEDS ORDERED: FentaNYL Citrate 50 MCG/ML 2 ML Injection ONE (09:59)
[2025-05-08] MEDS ORDERED: D5W IV ONE (09:59)
[2025-05-08] MEDS ORDERED: NS 1,000 ML IV ONE (10:00)
[2025-05-08] MEDS ORDERED: NS 500 ML IV ONE (10:00)
[2025-05-08] MEDS ORDERED: Heparin Sodium 1000 Units/ML 10ML MDV ONE (10:00)
[2025-05-08 12:37] VITALS: BP 131/86
--- NOTE | 2025-05-08 12:40 | NUR ---
pt returns to recovery room. up in recliner, alert and oriented. Ice placed to chest wall per order. Site wnl upon arrival, no swelling or oozing. VSS. Snacks provided. NADN, call light in reach.
[2025-05-08 13:18] VITALS: BP 120/79
[2025-05-08 13:45] VITALS: BP 118/74
--- NOTE | 2025-05-08 14:04 | NUR ---
PT BACK AFTER CHEST XRAY, AWAITING DR. SALAZAR TO REVIEW
--- NOTE | 2025-05-08 14:30 | NUR ---
Dr. Pearce at bedside, chest xray reviewed and site reviewed. no further questions at this time, plans for pt DC to home
--- NOTE | 2025-05-08 14:54 | NUR ---
Discharge instructions reveiwed in detail, Follow up appointemnts scheduled and highlighted on discharge instructions. PT. verbalized understanding, no further questions at this time. Pt. to drive pt home. IV removed catheter intact, site remains WNL upon discharge. Ice pack remains to site. PT. called for orange picker taken to exit via wheel chair.
== END 2025-05-08 14:56 | disposition home or self-care (01) ==
LOC: MHTC 08:57
DX: I48.0 Paroxysmal atrial fibrillation (principal); I49.5 Sick sinus syndrome; I45.5 Other specified heart block
CPT/HCPCS: 33208; 71046; 99152; 99153; C1785; C1894; C1898; J1644; J2250; J3010; J7030; J7040; Q9967

== ENCOUNTER → 2025-05-18 | Outpatient (CLI) | payer OTHER | LOC: LAB SHORT 15:46 → LAB 15:46 | DX: L08.0 Pyoderma (principal) | CPT/HCPCS: 87070; 87077; 87186; 87205 ==

== ENCOUNTER → 2025-06-10 | Outpatient (CLI) | payer OTHER ==
[2025-06-10 19:41] LABS: Microalbumin, Urine Quant. 76.4 mg/L (0.000-20.000); Protein, Urine Quantitative 22.1 mg/dL (0.0-11.9)
[2025-06-15 16:29] LABS: CORTISOL,U FREE - RATIO TO CRT 15.84 ug/g CRT; CORTISOL,URINE FREE - PER 24H 19.6 ug/d (<=60.0); CORTISOL,URN FREE - PER VOLUME 9.82 ug/L; CREATININE,URINE - PER 24H 1240 mg/d (800-2100); CREATININE,URINE - PER VOLUME 62 mg/dL; HOURS COLLECTED 24 hr
== END ==
LOC: LAB SHORT 14:00 → LAB 14:00 → LAB FUT 06-08 15:10
PROVIDERS: Internal Medicine Nephrology
DX: N18.30 Chronic kidney disease, stage 3 unspecified (principal); D63.1 Anemia in chronic kidney disease; N25.81 Secondary hyperparathyroidism of renal origin; E78.00 Pure hypercholesterolemia, unspecified; N40.1 Benign prostatic hyperplasia with lower urinary tract symptoms; R76.9 Abnormal immunological finding in serum, unspecified; R94.5 Abnormal results of liver function studies; R94.6 Abnormal results of thyroid function studies
CPT/HCPCS: 81050; 82043; 82530; 82570; 84156

== ENCOUNTER → 2025-07-28 | Outpatient (CLI) | payer OTHER ==
[2025-07-28 16:33] LABS: BASOPHILS ABSOLUTE AUTO 0.09 K/mm3 (0.00-0.23); BASOPHILS PERCENT AUTO 1 % (0-2); EOSINOPHILS ABSOLUTE AUTO 0.22 K/mm3 (0.00-0.68); EOSINOPHILS PERCENT AUTO 3 % (0-6); Hematocrit 35.4 % (37.0-53.0); Hemoglobin 11.6 g/dL (13.5-17.5); IMMATURE GRAN ABSOLUTE AUTO 0.02 K/mm3 (0.00-0.10); IMMATURE GRAN PERCENT AUTO 0 % (0-1); LYMPHOCYTES ABSOLUTE AUTO 1.31 K/mm3 (0.84-5.20); LYMPHOCYTES PERCENT AUTO 17 % (21-46); MONOCYTES ABSOLUTE AUTO 0.71 K/mm3 (0.16-1.47); MONOCYTES PERCENT AUTO 9 % (4-13); Mean Corpuscular HGB Conc 32.8 g/dL (31.5-36.5); Mean Corpuscular Volume 87 fL (80-100); NEUTROPHILS ABSOLUTE AUTO 5.33 K/mm3 (1.96-9.15); NEUTROPHILS PERCENT AUTO 69 % (41-73); NRBC ABSOLUTE 0.00 K/mm3 (0.00-0.02); NRBC Auto 0.0 /100 WBC (0.0-0.2); Platelet Count 225 K/mm3 (150-400); RDW Coefficient Variation 14.7 % (11.7-14.2); RDW Standard Deviation 46.8 fL (35.1-46.3)
[2025-07-28 19:36] LABS: Ferritin, Serum 696.0 ng/mL (26-388); Total Iron Binding Capacity 214.0 ug/dL (250-450)
== END ==
LOC: LAB SHORT 15:53 → LAB 15:53
PROVIDERS: Internal Medicine Hematology & Oncology
DX: E61.1 Iron deficiency (principal)
CPT/HCPCS: 82728; 83540; 83550; 85025